=== PATIENT | female | born 1995 ===

== ENCOUNTER 2020-07-12 10:54 | Emergency (ER) | payer OTHER ==
[~2020-07-12] VITALS: Ht 165.1 cm; Wt 95.3 kg
[2020-07-12] MEDS ORDERED: NORFLEX100MG PO (15:48)
[2020-07-12] MEDS ORDERED: ZITHROMAX500 MG PO (15:48)
== END 2020-07-12 16:04 | disposition home or self-care (01) ==
LOC: ER 10:54
DX: R51 Headache (principal); M54.2 Cervicalgia

== ENCOUNTER 2021-04-28 15:47 | Emergency (ER) | payer OTHER ==
[~2021-04-28] VITALS: Ht 165.1 cm; Wt 83.9 kg
[~2021-04-28 15:47] MED LIST: NORFLEX100MG PO; ZITHROMAX500 MG PO
[2021-04-28] MEDS ORDERED: MEDROXYPROGESTE10 MG PO (19:42)
[2021-04-28] MEDS ORDERED: KETO10TA2 PO (19:43)
== END 2021-04-28 21:58 | disposition home or self-care (01) ==
LOC: ER 15:47
DX: R10.2 Pelvic and perineal pain (principal); N93.8 Other specified abnormal uterine and vaginal bleeding